=== PATIENT | female | born 1970 | race Caucasian/White ===

== ENCOUNTER → 2019-02-01 | Outpatient (CLI) | payer OTHER ==
--- NOTE | 2019-02-01 11:59 | KCIC ---
EXAM: Bilateral digital screening mammogram with tomosynthesis. HISTORY: 48-year-old female presents for screening mammography. TECHNIQUE: Full-field digital craniocaudal and mediolateral oblique 2D and 3D tomosynthesis images of both breasts are obtained for evaluation. Computer aided detection with OpenSpaceD software version 9.3 was applied. COMPARISON: None. This is a baseline mammogram. BREAST PARENCHYMAL DENSITY: Level B - Scattered fibroglandular densities. FINDINGS: There is no suspicious mass, microcalcification or region of architectural distortion. IMPRESSION: BI-RADS Category 2: Benign finding(s). RECOMMENDATION: Annual mammography is recommended. If your mammogram demonstrates that you have dense breast tissue, which could hide abnormalities, and if you have other risk factors for breast cancer that have been identified, you might benefit from supplemental screening tests that may be suggested by your ordering physician. Dense breast tissue, in and of itself, is a relatively common condition. This information is not provided to cause undue concern, but rather to raise your awareness and to promote discussion with your physician regarding the presence of other risk factors, in addition to dense breast tissue. A report of your mammography results will be sent to you and your physician. You should contact your physician if you have any questions or concerns regarding this report. Mammography is a sensitive method for finding small breast cancers, but it does not detect them all and is not a substitute for careful clinical examination. A negative mammogram does not negate a clinically suspicious finding and should not result in delay in biopsying a clinically suspicious abnormality. PQRS compliance statement - Patient information was entered into a reminder system with a target due date for the next mammogram. "Our facility is accredited by the [employer] Mammography Program." Electronically signed by: Bonnie Rodriguez MD (02/01/2019 11:56 AM) [id number]
== END | disposition home or self-care (01) ==
LOC: KCIC MAMMO 10:07
PROVIDERS: ATTEND Family Medicine
DX: Z12.31 Encounter for screening mammogram for malignant neoplasm of breast (principal)
CPT/HCPCS: 77063; 77067

== ENCOUNTER 2020-02-24 00:23 | Inpatient (IN) | payer OTHER ==
[~2020-02-24] VITALS: Ht 162.6 cm; Wt 70.9 kg
--- NOTE | 2020-02-24 00:47 | RAD ---
INDICATION: Reason: LEFT ARM NUMBNESS / Spl. Instructions: / History: COMPARISON: None. TECHNIQUE: Axial CT images obtained through the head without intravenous contrast. One or more of the following individualized dose reduction techniques were utilized for this examination: 1. Automated exposure control; 2. Adjustment of the mA and/or kV according to patient size; 3. Use of iterative reconstruction technique. FINDINGS: No intracranial hemorrhage. No midline shift. Basal cisterns patent. Ventricles and sulci are unremarkable. No acute osseous abnormality. Orbits and paranasal sinuses unremarkable. IMPRESSION: * No acute intracranial hemorrhage. * There are some scattered regions of low-density within the white matter. Nonspecific but some possible causes include small vessel ischemic disease or migraine. If further evaluation is desired an MRI could better assess whether any of these foci are acute. Report called to the emergency department at 12:41 AM on date of exam Electronically signed by: Severo Vance MD (02/24/2020 12:44 AM) [id number]
[2020-02-24 00:51] LABS: BASO # 0.1 x10^3/uL (0.0-0.2); BASO % 1 % (0-3); EOS # 0.5 x10^3/uL (0.0-0.7); EOS % 5 % (0-3); HEMATOCRIT 44.1 % (36.0-47.0); HEMOGLOBIN 15.4 g/dL (12.0-15.5); LYMPH # 3.7 x10^3/uL (1.0-4.8); LYMPH % 37 % (24-48); MEAN CORPUSCULAR HEMOGLOBIN 32 pg (25-35); MEAN CORPUSCULAR HGB CONC 35 g/dL (31-37); MEAN CORPUSCULAR VOLUME 90 fL (79-100); MONO # 0.6 x10^3/uL (0.0-1.1); MONO % 6 % (0-9); NEUT # 5.1 x10^3/uL (1.8-7.7); NEUT % 50 % (31-73); PLATELET COUNT 243 x10^3/uL (140-400); RED BLOOD COUNT 4.89 x10^6/uL (3.50-5.40); RED CELL DISTRIBUTION WIDTH 13.8 % (11.5-14.5); WHITE BLOOD COUNT 10.1 x10^3/uL (4.0-11.0)
--- NOTE | 2020-02-24 00:51 | PHYS DOC ---
General Adult EDM: Chief Complaint: NEURO SYMPTOMS/DEFICITS HPI: HPI: Patient is a 49 year old female presenting to the ED with a chief complaint of left upper extremity numbness. Patient states that she went to bed around 10:30 and woke up at 12:00 AM with numbness and pain in her left upper extremity. Patient does admit to being an active smoker. Patient also has a history of high blood pressure. Patient states that she had chest pain yesterday but none today. Patient denies fever, chills, nausea, vomiting, diarrhea, dysuria, shortness of breath. Review of Systems: Review of Systems: Constitutional: Denies fever or chills. [] Eyes: Denies change in visual acuity. [] HENT: Denies nasal congestion or sore throat. [] Respiratory: Denies cough or shortness of breath. [] Cardiovascular: Denies chest pain or edema. [] GI: Denies abdominal pain, nausea, vomiting, bloody stools or diarrhea. [] Neurologic: Complains of numbness in her left upper extremity and left cheek. [] Heart Score: Risk Factors: Risk Factors: DM, Current or recent (<one month) smoker, HTN, HLP, family history of CAD, obesity. Risk Scores: Score 0 - 3: 2.5% MACE over next 6 weeks - Discharge Home Score 4 - 6: 20.3% MACE over next 6 weeks - Admit for Clinical Observation Score 7 - 10: 72.7% MACE over next 6 weeks - Early Invasive Strategies Physical Exam: PE: Constitutional: Well developed, well nourished, no acute distress, non-toxic sage earance. [] HENT: Normocephalic, atraumatic Eyes: EOMI Neck: Normal range of motion, Supple Cardiovascular:Heart rate regular rhythm Lungs & Thorax: Bilateral breath sounds clear to auscultation [] Abdomen: Bowel sounds normal, soft, no tenderness Extremities: No tenderness, ROM intact Neurologic: Alert and oriented X 3, altered sensation in her left upper extremity and left side of the face EKG: EKG: [EKG interpretation: 12: 46 AM on 02/24/2020 HR: 61 Sinus rhythm Regular intervals Normal axis Nonspecific ST changes ] Radiology/Procedures: Radiology/Procedures: [] Impression: CT HEAD IMPRESSION: * No acute intracranial hemorrhage. * There are some scattered regions of low-density within the white matter. Nonspecific but some possible causes include small vessel ischemic disease or migraine. If further evaluation is desired an MRI could better assess whether any of these foci are acute. Report called to the emergency department at 12:41 AM on date of exam CTA HEAD and NECK IMPRESSION: * Vertebral, internal and common carotid arteries are patent within the neck. Multifocal plaque is seen. * Proximal middle, anterior and posterior cerebral arteries are patent. If there is high concern for stroke MRI could better assess for a more peripheral region of ischemia that would not be well seen on CT. * There are some lucent foci throughout the osseous structures. Could be from patchy osteopenia of the lucent lesions are within the differential as well and would correlate with history or risk factors for neoplasm. 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 Could be secondary to hypoplasia but may be helpful to obtain a follow-up MRI including venogram images to ensure there is not an alternative cause such as transverse sinus thrombosis. Report called to the ER at 3:20 AM Course & Med Decision Making: Course & Med Decision Making Pertinent Labs and Imaging studies reviewed. (See chart for details) Ordered labs, UA, CT head, EKG, troponin, chest x-ray EKG does not show any acute changes Labs are within normal limits. CT head does not show any acute intracranial process. There is some microvascular changes. I have discussed case with neurologist at 1:15 AM. Patient is still within the window. Patient denies score is 4. Patient has altered sensation in her left upper extremity and left side of her face. She also has mild left upper extremity drift and was not able to see the correct number of fingers with the left eye. Patient does not state that the symptoms are worsening. In discussion with the neurologist, the neurologist recommended that patient can be given TPA. I have discussed with patient at 1:20 AM. I have told her the risks and benefits of getting TPA. Patient does not have any exclusion criteria for TPA. After thinking it over patient declines TPA. She understands risks and dangers of not taking TPA. I have ordered a CTA of her head and neck. Patient will be admitted to hospital service for further evaluation and treatment. Patient's blood pressure was mildly elevated and so I have given her IV blood pressure medication in the ER. We will discuss with hospitalist service for admission. I discussed results and plan of care with patient. I discussed results of the CT of the head and neck with radiologist. The recommended the patient have an MRI with venogram. Dragon Disclaimer: Dragon Disclaimer: This electronic medical record was generated, in whole or in part, using a voice recognition dictation system. Departure Departure Impression: Primary Impression: CVA (cerebral vascular accident) Disposition: ADMITTED INPATIENT Condition: GUARDED Referrals: CARIE SANTIAGO MD (PCP) Justicifation of Admission Dx: Justifications for Admission: Justification of Admission Dx: Yes Stroke - Ischemic: Stroke-Ischemic JORDAN MARTINEZ DO Feb 24, 2020 00:51
[2020-02-24 00:59] LABS: CALCIUM 8.8 mg/dL (8.5-10.1); CREATININE 0.9 mg/dL (0.6-1.0); GFR 67.1; POTASSIUM 3.7 mmol/L (3.5-5.1)
[2020-02-24 01:04] LABS: ALBUMIN 3.5 g/dL (3.4-5.0); TOTAL BILIRUBIN 0.2 mg/dL (0.2-1.0); TOTAL PROTEIN 6.9 g/dL (6.4-8.2)
[2020-02-24] MEDS ORDERED: AMLO10TA4 PO (01:13)
[2020-02-24] MEDS ORDERED: BYSTOLIC20 MG PO (01:13)
[2020-02-24] MEDS ORDERED: IOHEXOL 300 MG/ML 100ML VIAL. IV ONE (02:00)
[2020-02-24 02:12] LABS: BILIRUBIN,URINE NEGATIVE (NEG); CLARITY,URINE CLEAR; COLOR,URINE YELLOW; NITRITE,URINE NEGATIVE (NEG); PROTEIN,URINE NEGATIVE (NEG-TRACE); UROBILINOGEN,URINE 0.2 mg/dL (0.2 mg/dL)
[2020-02-24] MEDS ORDERED: CONTRAST GIVEN. MC PRN (02:15)
[2020-02-24 02:16] LABS: BACTERIA,URINE 0 /HPF (0-FEW); RBC,URINE 0 /HPF (0-2); SQUAMOUS EPITHELIAL CELL,UR FEW /LPF; WBC,URINE OCC /HPF (0-4)
[2020-02-24] MEDS ORDERED: LABETALOL 20 MG/4 ML DISP.SYRIN. IVP ONE (02:30)
--- NOTE | 2020-02-24 03:33 | RAD ---
INDICATION: Reason: NEURO DEFICITS / Spl. Instructions: OMNI 300 INJ 75 MLS / History: COMPARISON: None. TECHNIQUE: Axial CT images obtained through the head and neck arterial vasculature with intravenous contrast. 3D images were processed per protocol. Estimates of carotid stenosis based on criteria that correlates with NASCET. One or more of the following individualized dose reduction techniques were utilized for this examination: 1. Automated exposure control; 2. Adjustment of the mA and/or kV according to patient size; 3. Use of iterative reconstruction technique. FINDINGS: Neck Angio: The vertebral arteries are patent. The common carotid arteries and internal carotid arteries are patent. Multifocal plaque is seen throughout the neck arterial vasculature with some hard and some soft plaque seen. There is suspected soft plaque at the origin of the right common carotid artery. Brain Angio: Proximal anterior cerebral arteries are patent. Proximal posterior cerebral arteries are patent. Proximal middle cerebral arteries are patent. Basilar artery is patent. The right transverse sinus is largely absent. Filling defect is seen at the junction of right transverse and sigmoid sinus which could be from arachnoid granulation. Other Findings: Nasal septal deviation to the left. Degenerative changes of the spine. Cystic changes at the lung apices. There are some lucent foci in some of the cervical vertebral bodies. IMPRESSION: * Vertebral, internal and common carotid arteries are patent within the neck. Multifocal plaque is seen. * Proximal middle, anterior and posterior cerebral arteries are patent. If there is high concern for stroke MRI could better assess for a more peripheral region of ischemia that would not be well seen on CT. * There are some lucent foci throughout the osseous structures. Could be from patchy osteopenia of the lucent lesions are within the differential as well and would correlate with history or risk factors for neoplasm. 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 Could be secondary to hypoplasia but may be helpful to obtain a follow-up MRI including venogram images to ensure there is not an alternative cause such as transverse sinus thrombosis. Report called to the ER at 3:20 AM FOR INTERNAL CODING PURPOSES RESULT CODE: (C) * Electronically signed by: Severo Vance MD (02/24/2020 3:29 AM) [id number]
--- NOTE | 2020-02-24 04:22 | RAD ---
INDICATION: Reason: pain / Spl. Instructions: / History: COMPARISON: None. FINDINGS: Single view of chest obtained. Hyperexpanded lungs without focal airspace consolidation. Calcific atherosclerosis without enlargement of cardiac silhouette. IMPRESSION: * Hyperexpanded lungs without focal airspace consolidation Electronically signed by: Severo Vance MD (02/24/2020 4:19 AM) [id number]
[2020-02-24 06:00] VITALS: BP 167/99
--- NOTE | 2020-02-24 06:37 | NUR ---
Pt brought to CVC room 211 at approx 0555. Pt transferred to CVC bed with SBA. Pt a&ox4, able to follow commands. NIH stroke scale performed upon admission to the unit with a score of zero. Pt VSS, afebrile. Pts only complaint is 2/10 pain to left arm, which she states is due to her IV irritating her. Pt denies any further numbness/tingling to her left side. Pt currently resting in bed with call light within reach. Pt is pressing call light to get up and use the restroom, otherwise pt is on bedrest. Will pass on and continue to monitor.
[2020-02-24 07:00] VITALS: BP 142/93
--- NOTE | 2020-02-24 08:11 | PDOC1 ---
History and Physical Date of Admission Date of Admission DATE: 02/24/20 TIME: 08:07 Identification/Chief Complaint Chief Complaint Left arm numbness Source Source: Patient History of Present Illness History of Present Illness Ms Aguirre is a 49 yo F w/ PMHx HTN, smoker presenting to the ED with a chief complaint of left upper extremity numbness. Patient states that she went to bed around 10:30pm and woke up at 12:00 AM with numbness and pain in her left upper extremity. Patient states that she had chest pain yesterday but none today. Patient denies fever, chills, nausea, vomiting, diarrhea, dysuria, shortness of breath. She notes a severe headache and nausea. Symptoms started to improve. She was not given ASA due to allergy. CT head nega tive for infarct, but CT angiography of brain and neck showed Past Medical History Cardiovascular: HTN Past Surgical History Past Surgical History: , Tubal Ligation Family History Family History: Hypertension Social History Smoke: <1 pack per day ALCOHOL: social Drugs: None Current Problem List Problem List Problems Medical Problems: (1) CVA (cerebral vascular accident) Status: Acute Current Medications Current Medications Current Medications Labetalol HCl (Normodyne Iv Push) 5 mg 1X ONCE IVP Last administered on 02/24/20at 02:08; Start 02/24/20 at 02:30; Stop 02/24/20 at 02:31; Status DC Iohexol (Omnipaque 300 Mg/ml) 75 ml 1X ONCE IV Last administered on 02/24/20at 02:02; Start 02/24/20 at 02:00; Stop 02/24/20 at 02:03; Status DC Info (CONTRAST GIVEN -- Rx MONITORING) 1 each PRN DAILY PRN MC SEE COMMENTS; Start 02/24/20 at 02:15; Stop 02/26/20 at 02:14 Active Scripts Active Reported Bystolic (Nebivolol Hcl) 20 Mg Tablet 20 Mg PO DAILY PRN Norvasc (Amlodipine Besylate) 10 Mg Tablet 10 Mg PO DAILY PRN Allergies Allergies: Coded Allergies: aspirin (Verified Allergy, Severe, angioedema, 02/24/20) 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 , 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, 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, 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 General: YES: Fatigue, Malaise; No: Chills, Night Sweats, Appetite, Other PSYCHOLOGICAL ROS: YES: Anxiety; No: Behavioral Disorder, Concentration difficultie, Decreased libido, Depression, Disorientation, Hallucinations, Hostility, Irritablity, Memory difficulties, Mood Swings, Obsessive thoughts, Physical abuse, Sexual abuse, Sleep disturbances, Suicidal ideation, Other Eyes: No Blurry vision, No Decreased vision, No Double vision, No Dry eyes, No Excessive tearing, No Eye Pain, No Itchy Eyes, No Loss of vision, No Photophobia, No Scotomata, No Uses contacts, No Uses glasses, No Other HEENT: No: Heacaches, Visual Changes, Hearing change, Nasal congestion, Nasal discharge, Oral lesions, Sinus pain, Sore Throat, Epistaxis, Sneezing, Snoring, Tinnitus, Vertigo, Vocal changes, Other ALLERGY AND IMMUNOLOGY: No: Hives, Insect Bite Sensitivity, Itchy/Watery Eyes, Nasal Congestion, Post Nasal Drip, Seasonal Allergies, Other Hematological and Lymphatic: No: Bleeding Problems, Blood Clots, Blood Transfusions, Brusing, Night Sweats, Pallor, Swollen Lymph Nodes, Other ENDOCRINE: No: Breast Changes, Galactorrhea, Hair Pattern Changes, Hot Flashes, Malaise/lethargy, Mood Swings, Palpitations, Polydipsia/polyuria, Skin Changes, Temperature Intolerance, Unexpected Weight Changes, Other Breast: No New/Changing Breast Lumps, No Nipple changes, No Nipple discharge, No Other Respiratory: No: Cough, Hemoptysis, Orthopnea, Pleuritic Pain, Shortness of breath, SOB with excertion, Sputum Changes, Stridor, Tachypnea, Wheezing, Other Cardiovascular: No Chest Pain, No Palpitations, No Orthopnea, No Paroxysmal Noc. Dyspnea, No Edema, No Lt Headedness, No Other Gastrointestinal: No Nausea, No Vomiting, No Abdominal Pain, No Diarrhea, No Constipation, No Melena, No Hematochezia, No Other Genitourinary: No Dysuria, No Frequency, No Incontinence, No Hematuria, No Retention, No Discharge, No Urgency, No Pain, No Flank Pain, No Other, No , No , No , No , No , No , No Musculoskeletal: No Gait Disturbance, No Joint Pain, No Joint Stiffness, No Joint Swelling, No Muscle Pain, No Muscular Weakness, No Pain In:, No Swelling In:, No Other Neurological: Yes Headaches, Yes Numbness/Tingling, Yes Weakness; No Behavorial Changes, No Bowel/Bladder ControlChng, No Confusion, No Dizziness, No Gait Disturbance, No Impaired Coord/balance, No Memory Loss, No Seizures, No Speech Problems, No Tremors, No Visual Changes, No Other Skin: No Dry Skin, No Eczema, No Hair Changes, No Lumps, No Mole Changes, No Mottling, No Nail Changes, No Pruritus, No Rash, No Skin Lesion Changes, No Other, No Acne Physical Exam General: Alert, Oriented X3, Cooperative, No acute distress HEENT: Atraumatic, PERRLA, EOMI, Mucous membr. moist/pink Lungs: Clear to auscultation, Normal air movement Heart: S1S2, RRR, no thrills, no rubs, no gallops, no murmurs Abdomen: Normal bowel sounds, Soft, No tenderness, No hepatosplenomegaly, No masses Rectal Exam: not examined Extremities: No clubbing, No cyanosis, No edema, Normal pulses, No tenderness/swelling Skin: No rashes, No breakdown, No significant lesion Neuro: Normal gait, Normal speech, Strength at 5/5 X4 ext, Normal tone, Sensation intact, Cranial nerves 3-12 NL, Reflexes 2+ Psych/Mental Status: Mental status NL, Mood NL Vitals Vitals Vital Signs Date Time Temp Pulse Resp B/P (MAP) Pulse Ox O2 Delivery O2 Flow Rate FiO2 02/24/20 06:00 97.9 69 18 167/99 (121) 92 Room Air 97.9 Labs Labs Laboratory Tests Test 02/24/20 00:38 02/24/20 00:40 02/24/20 02:03 Glucose (Fingerstick) 88 mg/dL (70-99) White Blood Count 10.1 x10^3/uL (4.0-11.0) Red Blood Count 4.89 x10^6/uL (3.50-5.40) Hemoglobin 15.4 g/dL (12.0-15.5) Hematocrit 44.1 % (36.0-47.0) Mean Corpuscular Volume 90 fL (79-100) Mean Corpuscular Hemoglobin 32 pg (25-35) Mean Corpuscular Hemoglobin Concent 35 g/dL (31-37) Red Cell Distribution Width 13.8 % (11.5-14.5) Platelet Count 243 x10^3/uL (140-400) Neutrophils (%) (Auto) 50 % (31-73) Lymphocytes (%) (Auto) 37 % (24-48) Monocytes (%) (Auto) 6 % (0-9) Eosinophils (%) (Auto) 5 % (0-3) Basophils (%) (Auto) 1 % (0-3) Neutrophils # (Auto) 5.1 x10^3/uL (1.8-7.7) Lymphocytes # (Auto) 3.7 x10^3/uL (1.0-4.8) Monocytes # (Auto) 0.6 x10^3/uL (0.0-1.1) Eosinophils # (Auto) 0.5 x10^3/uL (0.0-0.7) Basophils # (Auto) 0.1 x10^3/uL (0.0-0.2) Sodium Level 141 mmol/L (136-145) Potassium Level 3.7 mmol/L (3.5-5.1) Chloride Level 107 mmol/L (98-107) Carbon Dioxide Level 28 mmol/L (21-32) Anion Gap 6 (6-14) Blood Urea Nitrogen 20 mg/dL (7-20) Creatinine 0.9 mg/dL (0.6-1.0) Estimated GFR (Cockcroft-Gault) 67.1 BUN/Creatinine Ratio 22 (6-20) Glucose Level 98 mg/dL (70-99) Calcium Level 8.8 mg/dL (8.5-10.1) Total Bilirubin 0.2 mg/dL (0.2-1.0) Aspartate Amino Transf (AST/SGOT) 18 U/L (15-37) Alanine Aminotransferase (ALT/SGPT) 19 U/L (14-59) Alkaline Phosphatase 92 U/L (46-116) Troponin I Quantitative < 0.017 ng/mL (0.000-0.055) Total Protein 6.9 g/dL (6.4-8.2) Albumin 3.5 g/dL (3.4-5.0) Albumin/Globulin Ratio 1.0 (1.0-1.7) Urine Collection Type Unknown Urine Color Yellow Urine Clarity Clear Urine pH 7.0 (<5.0-8.0) Urine Specific [place] 1.010 (1.000-1.030) Urine Protein Negative mg/dL (NEG-TRACE) Urine Glucose (UA) Negative mg/dL (NEG) Urine Ketones (Stick) Negative mg/dL (NEG) Urine Blood Negative (NEG) Urine Nitrite Negative (NEG) Urine Bilirubin Negative (NEG) Urine Urobilinogen Dipstick 0.2 mg/dL (0.2 mg/dL) Urine Leukocyte Esterase Negative (NEG) Urine RBC 0 /HPF (0-2) Urine WBC Occ /HPF (0-4) Urine Squamous Epithelial Cells Few /LPF Urine Bacteria 0 /HPF (0-FEW) Laboratory Tests Test 02/24/20 00:38 02/24/20 00:40 02/24/20 02:03 Glucose (Fingerstick) 88 mg/dL (70-99) White Blood Count 10.1 x10^3/uL (4.0-11.0) Red Blood Count 4.89 x10^6/uL (3.50-5.40) Hemoglobin 15.4 g/dL (12.0-15.5) Hematocrit 44.1 % (36.0-47.0) Mean Corpuscular Volume 90 fL (79-100) Mean Corpuscular Hemoglobin 32 pg (25-35) Mean Corpuscular Hemoglobin Concent 35 g/dL (31-37) Red Cell Distribution Width 13.8 % (11.5-14.5) Platelet Count 243 x10^3/uL (140-400) Neutrophils (%) (Auto) 50 % (31-73) Lymphocytes (%) (Auto) 37 % (24-48) Monocytes (%) (Auto) 6 % (0-9) Eosinophils (%) (Auto) 5 % (0-3) Basophils (%) (Auto) 1 % (0-3) Neutrophils # (Auto) 5.1 x10^3/uL (1.8-7.7) Lymphocytes # (Auto) 3.7 x10^3/uL (1.0-4.8) Monocytes # (Auto) 0.6 x10^3/uL (0.0-1.1) Eosinophils # (Auto) 0.5 x10^3/uL (0.0-0.7) Basophils # (Auto) 0.1 x10^3/uL (0.0-0.2) Sodium Level 141 mmol/L (136-145) Potassium Level 3.7 mmol/L (3.5-5.1) Chloride Level 107 mmol/L (98-107) Carbon Dioxide Level 28 mmol/L (21-32) Anion Gap 6 (6-14) Blood Urea Nitrogen 20 mg/dL (7-20) Creatinine 0.9 mg/dL (0.6-1.0) Estimated GFR (Cockcroft-Gault) 67.1 BUN/Creatinine Ratio 22 (6-20) Glucose Level 98 mg/dL (70-99) Calcium Level 8.8 mg/dL (8.5-10.1) Total Bilirubin 0.2 mg/dL (0.2-1.0) Aspartate Amino Transf (AST/SGOT) 18 U/L (15-37) Alanine Aminotransferase (ALT/SGPT) 19 U/L (14-59) Alkaline Phosphatase 92 U/L (46-116) Troponin I Quantitative < 0.017 ng/mL (0.000-0.055) Total Protein 6.9 g/dL (6.4-8.2) Albumin 3.5 g/dL (3.4-5.0) Albumin/Globulin Ratio 1.0 (1.0-1.7) Urine Collection Type Unknown Urine Color Yellow Urine Clarity Clear Urine pH 7.0 (<5.0-8.0) Urine Specific [place] 1.010 (1.000-1.030) Urine Protein Negative mg/dL (NEG-TRACE) Urine Glucose (UA) Negative mg/dL (NEG) Urine Ketones (Stick) Negative mg/dL (NEG) Urine Blood Negative (NEG) Urine Nitrite Negative (NEG) Urine Bilirubin Negative (NEG) Urine Urobilinogen Dipstick 0.2 mg/dL (0.2 mg/dL) Urine Leukocyte Esterase Negative (NEG) Urine RBC 0 /HPF (0-2) Urine WBC Occ /HPF (0-4) Urine Squamous Epithelial Cells Few /LPF Urine Bacteria 0 /HPF (0-FEW) Images Images CT head: No intracranial hemorrhage. No midline shift. Basal cisterns patent. Ventricles and sulci are unremarkable. No acute osseous abnormality. Orbits and paranasal sinuses unremarkable. IMPRESSION: * No acute intracranial hemorrhage. * There are some scattered regions of low-density within the white matter. Nonspecific but some possible causes include small vessel ischemic disease or migraine. If further evaluation is desired an MRI could better assess whether any of these foci are acute. CTA head/neck: Neck Angio: The vertebral arteries are patent. The common carotid arteries and internal carotid arteries are patent. Multifocal plaque is seen throughout the neck arterial vasculature with some hard and some soft plaque seen. There is suspected soft plaque at the origin of the right common carotid artery. Brain Angio: Proximal anterior cerebral arteries are patent. Proximal posterior cerebral arteries are patent. Proximal middle cerebral arteries are patent. Basilar artery is patent. The right transverse sinus is largely absent. Filling defect is seen at the junction of right transverse and sigmoid sinus which could be from arachnoid granulation. Other Findings: Nasal septal deviation to the left. Degenerative changes of the spine. Cystic changes at the lung apices. There are some lucent foci in some of the cervical vertebral bodies. IMPRESSION: * Vertebral, internal and common carotid arteries are patent within the neck. Multifocal plaque is seen. * Proximal middle, anterior and posterior cerebral arteries are patent. If there is high concern for stroke MRI could better assess for a more peripheral region of ischemia that would not be well seen on CT. * There are some lucent foci throughout the osseous structures. Could be from patchy osteopenia of the lucent lesions are within the differential as well and would correlate with history or risk factors for neoplasm. 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 Could be secondary to hypoplasia but may be helpful to obtain a follow-up MRI including venogram images to ensure there is not an alternative cause such as transverse sinus thrombosis. Report called to the ER at 3:20 AM CXR: Hyperexpanded lungs without focal airspace consolidation. Calcific atherosclerosis without enlargement of cardiac silhouette. IMPRESSION: * Hyperexpanded lungs without focal airspace consolidation VTE Prophylaxis Ordered VTE Prophylaxis Devices: No VTE Pharmacological Prophylaxi: Yes Assessment/Plan Assessment/Plan A/P: Left upper extremity weakness - possibly left radial neuropathy or radiculopathy, less likely CVA given resolution. MRI ordered. Neurology consulted. ASA allergy. No need for plavix Possible thrombosis in right transverse sinus versus just congenital hypoplasia - will get MRV HTN - cont home meds Headache - possibly 2/2 sinus thrombus vs stress, will give toradol prn Nausea - zofran and compazine ordered FEN - Regular diet PPX - SCDs FULL CODE Dispo - inpatient awaiting further testing given weakness, but given resolution of symptoms. Discharge later today if tests negative. Justicifation of Admission Dx: Justifications for Admission: Justification of Admission Dx: Comment: (left upper extremity weakness and possible right venous sinus thrombus) ALINE EDMONDSON MD Feb 24, 2020 08:11
--- NOTE | 2020-02-24 09:04 | EKG ---
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
--- NOTE | 2020-02-24 09:10 | PDOC2 ---
NEUROLOGY CONSULT Date of Admission Date of Admission DATE: 02/24/20 TIME: 09:03 Reason for Consult Reason for Consult: Possible stroke Referring Physician Referring Physician: Dr. Kunz Source Source: Chart review, Patient History of Present Illness History of Present Illness The patient is a 49-year-old right-handed female who presented the emergency department with left upper extremity numbness and weakness. She went to bed at 1030, that's her last known normal, woke up at 12 AM with the symptoms. There was pain in the left dorsal forearm. The emergency room physician discussed the case with on-call neurologist who recommended alteplase, but the patient declined after hearing the risks, benefits, alternatives, and side effects. She is much better this morning. She was very tired last night and may have janell on the left arm. There were no symptoms the other extremities. There was no headache or cranial nerve symptoms. There is no history of migraine. The patient was not intoxicated. 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 Current Medications Current Medications Current Medications Labetalol HCl (Normodyne Iv Push) 5 mg 1X ONCE IVP Last administered on 02/24/20at 02:08; Start 02/24/20 at 02:30; Stop 02/24/20 at 02:31; Status DC Iohexol (Omnipaque 300 Mg/ml) 75 ml 1X ONCE IV Last administered on 02/24/20at 02:02; Start 02/24/20 at 02:00; Stop 02/24/20 at 02:03; Status DC Info (CONTRAST GIVEN -- Rx MONITORING) 1 each PRN DAILY PRN MC SEE COMMENTS; Start 02/24/20 at 02:15; Stop 02/26/20 at 02:14 Active Scripts Active Reported Bystolic (Nebivolol Hcl) 20 Mg Tablet 20 Mg PO DAILY PRN Norvasc (Amlodipine Besylate) 10 Mg Tablet 10 Mg PO DAILY PRN Allergies Allergies: Coded Allergies: aspirin (Verified Allergy, Severe, angioedema, 02/24/20) 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 Negative for fever, chills, weight loss, shortness of breath, chest pain, indigestion, hematochezia, melena, and dysuria. Full 14-point review of systems is negative. Physical Exam Physical Examination General: Well-developed, well-nourished white female in no acute distress HEENT: Normocephalic andatraumatic. Temporal arteriespulsatile and nontender. Neck: Supple without bruit, no meningismus Musculoskeletal: Stability:see neurologic. Gait exam:see neurologic. Tone:see neurologic.Strength:see neurologic. Joints: some tenderness to palpation in the dorsum of the left hand and wrist Neurological: Mental Status:intact, orientation, memory, attention span/concentration, language, fund of knowledge normal. Cranial Nerves:Pupils equal and reactive to light, extraocular movements areintact, visual kathleen are full to confrontation. Facial sensation is normal. There is no facial asymmetry. Vestibulo-ocular reflex is intact. Palate elevates and tongue protrudes in midline. All other cranial related problems are negative except as mentioned before.Reflexes:2+ and symmetric with flexor plantar responses. Motor:5/5 strength with normal tone and bulk. Coordination:Finger-nose finger and [id number] testing are normal. Rapid alternating movements and fine finger movements are intact. Gait:Normal, including tandem. Sensory:Normal pinprick, vibration, light touch, proprioception. Vitals VITALS Vital Signs Date Time Temp Pulse Resp B/P (MAP) Pulse Ox O2 Delivery O2 Flow Rate FiO2 02/24/20 06:00 97.9 69 18 167/99 (121) 92 Room Air 97.9 Labs Labs Laboratory Tests Test 02/24/20 00:38 02/24/20 00:40 02/24/20 02:03 Glucose (Fingerstick) 88 mg/dL (70-99) White Blood Count 10.1 x10^3/uL (4.0-11.0) Red Blood Count 4.89 x10^6/uL (3.50-5.40) Hemoglobin 15.4 g/dL (12.0-15.5) Hematocrit 44.1 % (36.0-47.0) Mean Corpuscular Volume 90 fL (79-100) Mean Corpuscular Hemoglobin 32 pg (25-35) Mean Corpuscular Hemoglobin Concent 35 g/dL (31-37) Red Cell Distribution Width 13.8 % (11.5-14.5) Platelet Count 243 x10^3/uL (140-400) Neutrophils (%) (Auto) 50 % (31-73) Lymphocytes (%) (Auto) 37 % (24-48) Monocytes (%) (Auto) 6 % (0-9) Eosinophils (%) (Auto) 5 % (0-3) Basophils (%) (Auto) 1 % (0-3) Neutrophils # (Auto) 5.1 x10^3/uL (1.8-7.7) Lymphocytes # (Auto) 3.7 x10^3/uL (1.0-4.8) Monocytes # (Auto) 0.6 x10^3/uL (0.0-1.1) Eosinophils # (Auto) 0.5 x10^3/uL (0.0-0.7) Basophils # (Auto) 0.1 x10^3/uL (0.0-0.2) Sodium Level 141 mmol/L (136-145) Potassium Level 3.7 mmol/L (3.5-5.1) Chloride Level 107 mmol/L (98-107) Carbon Dioxide Level 28 mmol/L (21-32) Anion Gap 6 (6-14) Blood Urea Nitrogen 20 mg/dL (7-20) Creatinine 0.9 mg/dL (0.6-1.0) Estimated GFR (Cockcroft-Gault) 67.1 BUN/Creatinine Ratio 22 (6-20) Glucose Level 98 mg/dL (70-99) Calcium Level 8.8 mg/dL (8.5-10.1) Total Bilirubin 0.2 mg/dL (0.2-1.0) Aspartate Amino Transf (AST/SGOT) 18 U/L (15-37) Alanine Aminotransferase (ALT/SGPT) 19 U/L (14-59) Alkaline Phosphatase 92 U/L (46-116) Troponin I Quantitative < 0.017 ng/mL (0.000-0.055) Total Protein 6.9 g/dL (6.4-8.2) Albumin 3.5 g/dL (3.4-5.0) Albumin/Globulin Ratio 1.0 (1.0-1.7) Urine Collection Type Unknown Urine Color Yellow Urine Clarity Clear Urine pH 7.0 (<5.0-8.0) Urine Specific [place] 1.010 (1.000-1.030) Urine Protein Negative mg/dL (NEG-TRACE) Urine Glucose (UA) Negative mg/dL (NEG) Urine Ketones (Stick) Negative mg/dL (NEG) Urine Blood Negative (NEG) Urine Nitrite Negative (NEG) Urine Bilirubin Negative (NEG) Urine Urobilinogen Dipstick 0.2 mg/dL (0.2 mg/dL) Urine Leukocyte Esterase Negative (NEG) Urine RBC 0 /HPF (0-2) Urine WBC Occ /HPF (0-4) Urine Squamous Epithelial Cells Few /LPF Urine Bacteria 0 /HPF (0-FEW) Laboratory Tests Test 02/24/20 00:38 02/24/20 00:40 02/24/20 02:03 Glucose (Fingerstick) 88 mg/dL (70-99) White Blood Count 10.1 x10^3/uL (4.0-11.0) Red Blood Count 4.89 x10^6/uL (3.50-5.40) Hemoglobin 15.4 g/dL (12.0-15.5) Hematocrit 44.1 % (36.0-47.0) Mean Corpuscular Volume 90 fL (79-100) Mean Corpuscular Hemoglobin 32 pg (25-35) Mean Corpuscular Hemoglobin Concent 35 g/dL (31-37) Red Cell Distribution Width 13.8 % (11.5-14.5) Platelet Count 243 x10^3/uL (140-400) Neutrophils (%) (Auto) 50 % (31-73) Lymphocytes (%) (Auto) 37 % (24-48) Monocytes (%) (Auto) 6 % (0-9) Eosinophils (%) (Auto) 5 % (0-3) Basophils (%) (Auto) 1 % (0-3) Neutrophils # (Auto) 5.1 x10^3/uL (1.8-7.7) Lymphocytes # (Auto) 3.7 x10^3/uL (1.0-4.8) Monocytes # (Auto) 0.6 x10^3/uL (0.0-1.1) Eosinophils # (Auto) 0.5 x10^3/uL (0.0-0.7) Basophils # (Auto) 0.1 x10^3/uL (0.0-0.2) Sodium Level 141 mmol/L (136-145) Potassium Level 3.7 mmol/L (3.5-5.1) Chloride Level 107 mmol/L (98-107) Carbon Dioxide Level 28 mmol/L (21-32) Anion Gap 6 (6-14) Blood Urea Nitrogen 20 mg/dL (7-20) Creatinine 0.9 mg/dL (0.6-1.0) Estimated GFR (Cockcroft-Gault) 67.1 BUN/Creatinine Ratio 22 (6-20) Glucose Level 98 mg/dL (70-99) Calcium Level 8.8 mg/dL (8.5-10.1) Total Bilirubin 0.2 mg/dL (0.2-1.0) Aspartate Amino Transf (AST/SGOT) 18 U/L (15-37) Alanine Aminotransferase (ALT/SGPT) 19 U/L (14-59) Alkaline Phosphatase 92 U/L (46-116) Troponin I Quantitative < 0.017 ng/mL (0.000-0.055) Total Protein 6.9 g/dL (6.4-8.2) Albumin 3.5 g/dL (3.4-5.0) Albumin/Globulin Ratio 1.0 (1.0-1.7) Urine Collection Type Unknown Urine Color Yellow Urine Clarity Clear Urine pH 7.0 (<5.0-8.0) Urine Specific [place] 1.010 (1.000-1.030) Urine Protein Negative mg/dL (NEG-TRACE) Urine Glucose (UA) Negative mg/dL (NEG) Urine Ketones (Stick) Negative mg/dL (NEG) Urine Blood Negative (NEG) Urine Nitrite Negative (NEG) Urine Bilirubin Negative (NEG) Urine Urobilinogen Dipstick 0.2 mg/dL (0.2 mg/dL) Urine Leukocyte Esterase Negative (NEG) Urine RBC 0 /HPF (0-2) Urine WBC Occ /HPF (0-4) Urine Squamous Epithelial Cells Few /LPF Urine Bacteria 0 /HPF (0-FEW) Images Images CT head: No intracranial hemorrhage. No midline shift. Basal cisterns patent. Ventricles and sulci are unremarkable. No acute osseous abnormality. Orbits and paranasal sinuses unremarkable. IMPRESSION: * No acute intracranial hemorrhage. * There are some scattered regions of low-density within the white matter. Nonspecific but some possible causes include small vessel ischemic disease or migraine. If further evaluation is desired an MRI could better assess whether any of these foci are acute. Report called to the emergency department at 12:41 AM on date of exam CT ANGIOGRAPHY HEAD AND NECK Neck Angio: The vertebral arteries are patent. The common carotid arteries and internal carotid arteries are patent. Multifocal plaque is seen throughout the neck arterial vasculature with some hard and some soft plaque seen. There is suspected soft plaque at the origin of the right common carotid artery. Brain Angio: Proximal anterior cerebral arteries are patent. Proximal posterior cerebral arteries are patent. Proximal middle cerebral arteries are patent. Basilar artery is patent. The right transverse sinus is largely absent. Filling defect is seen at the junction of right transverse and sigmoid sinus which could be from arachnoid granulation. Other Findings: Nasal septal deviation to the left. Degenerative changes of the spine. Cystic changes at the lung apices. There are some lucent foci in some of the cervical vertebral bodies. IMPRESSION: * Vertebral, internal and common carotid arteries are patent within the neck. Multifocal plaque is seen. * Proximal middle, anterior and posterior cerebral arteries are patent. If there is high concern for stroke MRI could better assess for a more peripheral region of ischemia that would not be well seen on CT. * There are some lucent foci throughout the osseous structures. Could be from patchy osteopenia of the lucent lesions are within the differential as well and would correlate with history or risk factors for neoplasm. 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 Could be secondary to hypoplasia but may be helpful to obtain a follow-up MRI including venogram images to ensure there is not an alternative cause such as transverse sinus thrombosis. Report called to the ER at 3:20 AM Assessment/Plan Assessment/Plan Impression: No evidence of a stroke or transient ischemic attack, signs and symptoms point more to musculoskeletal issues in the left arm, I would also consider a left radial neuropathy, also consider cervical radiculopathy, shoulder pathology, arthritis. There were no symptoms and the other extremities. Symptoms have resolved. Possible thrombosis in right transverse sinus versus just congenital hypoplasia. Possible skull lucencies Recommendations: MRI of the brain MR venogram Hold off on other genny treatments depending on these results I did discuss possible aspirin therapy, but the patient has pulmonary edema with it, risks certainly outweigh the benefits. I do not think she needs a stronger antiplatelet agents such as clopidogrel Discharge later today if tests negative. Thank you for letting me help with the patient's care. OSBALDO BENOIT MD Feb 24, 2020 09:10
[2020-02-24 11:00] VITALS: BP 150/91
--- NOTE | 2020-02-24 11:44 | NUR ---
SS following for discharge planning. SS reviewed pt chart and discussed with pt RN. Pt is from home with spouse and is currently on room air. SS will continue to follow for discharge planning.
[2020-02-24] MEDS ORDERED: PROCHLORPERAZINE 10 MG/2 ML VIAL. IV PRN (14:00)
[2020-02-24] MEDS ORDERED: KETOROLAC 30 MG/ML VIAL. IVP PRN (14:00)
[2020-02-24 14:28] VITALS: BP 144/93
[2020-02-24] MEDS ORDERED: amLODIPine BESYLATE 10 MG TABLET PO PRN (15:00)
[2020-02-24 19:00] VITALS: BP 155/92
[2020-02-24] MEDS ORDERED: METOPROLOL TART IMMED RELEASE 50 MG TABLET. PO PRN (21:00)
[2020-02-24 23:26] VITALS: BP 169/98
[2020-02-25 03:30] VITALS: BP 145/78
[2020-02-25 07:00] VITALS: BP 160/85
--- NOTE | 2020-02-25 09:24 | PDOC ---
PROGRESS NOTES Assessment Problems Medical Problems: (1) CVA (cerebral vascular accident) Status: Acute No evidence of a stroke or transient ischemic attack, signs and symptoms point more to musculoskeletal issues in the left arm, I would also consider a left radial neuropathy, also consider cervical radiculopathy, shoulder pathology, arthritis. There were no symptoms in the other extremities. Symptoms have resolved. Possible thrombosis in right transverse sinus versus just congenital hypoplasia. Possible skull lucencies Plan My office will arrange MRI of the brain, MR venogram as outpatient as brain MRI scanner is still out of order. Okay for discharge No aspirin therapy, patient has pulmonary edema with it, risks certainly outweigh the benefits. I do not think she needs a stronger antiplatelet agents such as clopidogrel Subjective No complaints, all symptoms have resolved Objective Vital Signs Date Time Temp Pulse Resp B/P (MAP) Pulse Ox O2 Delivery O2 Flow Rate FiO2 02/25/20 07:00 98.7 61 19 160/85 (110) 93 Room Air 98.7 Intake and Output 02/25/20 07:00 Intake Total 100 ml Output Total 200 ml Balance -100 ml Intake Oral 100 ml Output Urine Total 200 ml PHYSICAL EXAM Alert. Oriented to time, place and person. PERRL. EOMI. CN: no focal findings. Muscle tone: normal. Muscle strength: 5/5 DTR: 2+ Plantar reflex: flexor Gait: normal. Sensory exam: no abnormal findings. No cerebellar signs elicited. Review of Relevant I have reviewed the following items charles (where applicable) has been applied. Labs Laboratory Tests Test 02/24/20 00:38 02/24/20 00:40 02/24/20 02:03 Glucose (Fingerstick) 88 mg/dL (70-99) White Blood Count 10.1 x10^3/uL (4.0-11.0) Red Blood Count 4.89 x10^6/uL (3.50-5.40) Hemoglobin 15.4 g/dL (12.0-15.5) Hematocrit 44.1 % (36.0-47.0) Mean Corpuscular Volume 90 fL (79-100) Mean Corpuscular Hemoglobin 32 pg (25-35) Mean Corpuscular Hemoglobin Concent 35 g/dL (31-37) Red Cell Distribution Width 13.8 % (11.5-14.5) Platelet Count 243 x10^3/uL (140-400) Neutrophils (%) (Auto) 50 % (31-73) Lymphocytes (%) (Auto) 37 % (24-48) Monocytes (%) (Auto) 6 % (0-9) Eosinophils (%) (Auto) 5 % (0-3) Basophils (%) (Auto) 1 % (0-3) Neutrophils # (Auto) 5.1 x10^3/uL (1.8-7.7) Lymphocytes # (Auto) 3.7 x10^3/uL (1.0-4.8) Monocytes # (Auto) 0.6 x10^3/uL (0.0-1.1) Eosinophils # (Auto) 0.5 x10^3/uL (0.0-0.7) Basophils # (Auto) 0.1 x10^3/uL (0.0-0.2) Sodium Level 141 mmol/L (136-145) Potassium Level 3.7 mmol/L (3.5-5.1) Chloride Level 107 mmol/L (98-107) Carbon Dioxide Level 28 mmol/L (21-32) Anion Gap 6 (6-14) Blood Urea Nitrogen 20 mg/dL (7-20) Creatinine 0.9 mg/dL (0.6-1.0) Estimated GFR (Cockcroft-Gault) 67.1 BUN/Creatinine Ratio 22 (6-20) Glucose Level 98 mg/dL (70-99) Calcium Level 8.8 mg/dL (8.5-10.1) Total Bilirubin 0.2 mg/dL (0.2-1.0) Aspartate Amino Transf (AST/SGOT) 18 U/L (15-37) Alanine Aminotransferase (ALT/SGPT) 19 U/L (14-59) Alkaline Phosphatase 92 U/L (46-116) Troponin I Quantitative < 0.017 ng/mL (0.000-0.055) Total Protein 6.9 g/dL (6.4-8.2) Albumin 3.5 g/dL (3.4-5.0) Albumin/Globulin Ratio 1.0 (1.0-1.7) Urine Collection Type Unknown Urine Color Yellow Urine Clarity Clear Urine pH 7.0 (<5.0-8.0) Urine Specific [place] 1.010 (1.000-1.030) Urine Protein Negative mg/dL (NEG-TRACE) Urine Glucose (UA) Negative mg/dL (NEG) Urine Ketones (Stick) Negative mg/dL (NEG) Urine Blood Negative (NEG) Urine Nitrite Negative (NEG) Urine Bilirubin Negative (NEG) Urine Urobilinogen Dipstick 0.2 mg/dL (0.2 mg/dL) Urine Leukocyte Esterase Negative (NEG) Urine RBC 0 /HPF (0-2) Urine WBC Occ /HPF (0-4) Urine Squamous Epithelial Cells Few /LPF Urine Bacteria 0 /HPF (0-FEW) Medications Current Medications Labetalol HCl (Normodyne Iv Push) 5 mg 1X ONCE IVP Last administered on 02/24/20at 02:08; Start 02/24/20 at 02:30; Stop 02/24/20 at 02:31; Status DC Iohexol (Omnipaque 300 Mg/ml) 75 ml 1X ONCE IV Last administered on 02/24/20at 02:02; Start 02/24/20 at 02:00; Stop 02/24/20 at 02:03; Status DC Info (CONTRAST GIVEN -- Rx MONITORING) 1 each PRN DAILY PRN MC SEE COMMENTS; Start 02/24/20 at 02:15; Stop 02/26/20 at 02:14 Ketorolac Tromethamine (Toradol 30mg Vial) 30 mg PRN Q6HRS PRN IVP PAIN Last administered on 02/24/20at 14:14; Start 02/24/20 at 14:00; Stop 02/29/20 at 13:59 Prochlorperazine Edisylate (Compazine) 10 mg PRN Q6HRS PRN IV NAUSEA/VOMITING Last administered on 02/24/20at 14:14; Start 02/24/20 at 14:00 Amlodipine Besylate (Norvasc) 10 mg DAILY PRN PO HYPERTENSION-1ST CHOICE Last administered on 02/24/20at 21:49; Start 02/24/20 at 15:00 Metoprolol Tartrate (Lopressor) 50 mg PRN BID PRN PO HYPERTENSION; Start 02/24/20 at 21:00 Active Scripts Active Reported Bystolic (Nebivolol Hcl) 20 Mg Tablet 20 Mg PO DAILY PRN Norvasc (Amlodipine Besylate) 10 Mg Tablet 10 Mg PO DAILY PRN Vitals/I & O Vital Sign - Last 24 Hours 02/24/20 02/24/20 02/24/20 02/24/20 11:00 14:28 19:00 20:00 Temp 98.0 98.0 98.0 98.0 Pulse 66 66 Resp 18 B/P (MAP) 150/91 (110) 144/93 (110) 155/92 (113) Pulse Ox 94 94 O2 Delivery Room Air Room Air Room Air 02/24/20 02/24/20 02/25/20 02/25/20 21:49 23:26 03:30 07:00 Temp 97.6 97.9 98.7 97.6 97.9 98.7 Pulse 57 57 56 61 Resp 18 19 19 B/P (MAP) 155/92 169/98 (121) 145/78 (100) 160/85 (110) Pulse Ox 96 94 93 O2 Delivery Room Air Room Air Room Air Intake and Output 02/24/20 02/24/20 02/25/20 15:00 23:00 07:00 Intake Total 0 ml 100 ml 0 ml Output Total 200 ml Balance 0 ml -100 ml 0 ml Justicifation of Admission Dx: Justifications for Admission: Justification of Admission Dx: Comment: (left upper extremity weakness and possible right venous sinus thrombus) OSBALDO BENOIT MD Feb 25, 2020 09:24
[2020-02-25 11:00] VITALS: BP 144/90
--- NOTE | 2020-02-25 11:14 | PDOC ---
PROGRESS NOTES Chief Complaint Chief Complaint CT head: No intracranial hemorrhage. No midline shift. Basal cisterns patent. Ventricles and sulci are unremarkable. No acute osseous abnormality. Orbits and paranasal sinuses unremarkable. IMPRESSION: * No acute intracranial hemorrhage. * There are some scattered regions of low-density within the white matter. Nonspecific but some possible causes include small vessel ischemic disease or migraine. If further evaluation is desired an MRI could better assess whether any of these foci are acute. CTA head/neck: Neck Angio: The vertebral arteries are patent. The common carotid arteries and internal carotid arteries are patent. Multifocal plaque is seen throughout the neck arterial vasculature with some hard and some soft plaque seen. There is suspected soft plaque at the origin of the right common carotid artery. Brain Angio: Proximal anterior cerebral arteries are patent. Proximal posterior cerebral arteries are patent. Proximal middle cerebral arteries are patent. Basilar artery is patent. The right transverse sinus is largely absent. Filling defect is seen at the junction of right transverse and sigmoid sinus which could be from arachnoid granulation. Other Findings: Nasal septal deviation to the left. Degenerative changes of the spine. Cystic changes at the lung apices. There are some lucent foci in some of the cervical vertebral bodies. IMPRESSION: * Vertebral, internal and common carotid arteries are patent within the neck. Multifocal plaque is seen. * Proximal middle, anterior and posterior cerebral arteries are patent. If there is high concern for stroke MRI could better assess for a more peripheral region of ischemia that would not be well seen on CT. * There are some lucent foci throughout the osseous structures. Could be from patchy osteopenia of the lucent lesions are within the differential as well and would correlate with history or risk factors for neoplasm. 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 Could be secondary to hypoplasia but may be helpful to obtain a follow-up MRI including venogram i mages to ensure there is not an alternative cause such as transverse sinus thrombosis. Report called to the ER at 3:20 AM CXR: Hyperexpanded lungs without focal airspace consolidation. Calcific atherosclerosis without enlargement of cardiac silhouette. IMPRESSION: * Hyperexpanded lungs without focal airspace consolidation A/P: Left upper extremity weakness - possibly left radial neuropathy or radiculopathy, less likely CVA given resolution. MRI ordered. Neurology consulted. ASA allergy. No need for plavix Possible thrombosis in right transverse sinus versus just congenital hypoplasia - will get MRV outpatient HTN - cont home meds Headache - possibly 2/2 sinus thrombus vs stress, will give toradol prn Nausea - zofran and compazine ordered with improvement History of Present Illness History of Present Illness Ms Aguirre is a 49 yo F w/ PMHx HTN, smoker presenting to the ED with a chief complaint of left upper extremity numbness. Patient states that she went to bed around 10:30pm and woke up at 12:00 AM with numbness and pain in her left upper extremity. Patient states that she had chest pain yesterday but none today. Patient denies fever, chills, nausea, vomiting, diarrhea, dysuria, shortness of breath. She notes a severe headache and nausea. Symptoms started to improve. She was not given ASA due to allergy. CT head negative for infarct, but CT angiography of brain and neck showed possible right venous sinus occlusion She improved with 1 dose of toradol and compazine for headache and her neurologic symptoms completely resolved. She was seen by neurology and as our MRI machine is currently malfunctioning he will arrange for outpatient MRI, patient is amenable to this. Vitals Vitals Vital Signs Date Time Temp Pulse Resp B/P (MAP) Pulse Ox O2 Delivery O2 Flow Rate FiO2 02/25/20 08:00 Room Air 02/25/20 07:00 98.7 61 19 160/85 (110) 93 98.7 Physical Exam General: Alert, Oriented X3, Cooperative, No acute distress Abdomen: Normal bowel sounds, Soft, No tenderness, No hepatosplenomegaly, No masses Extremities: No clubbing, No cyanosis, No edema, Normal pulses, No tenderness/swelling Skin: No rashes, No breakdown, No significant lesion Assessment and Plan Assessmemt and Plan Problems Medical Problems: (1) CVA (cerebral vascular accident) Status: Acute Comment Review of Relevant I have reviewed the following items charles (where applicable) has been applied. Labs Laboratory Tests Test 02/24/20 00:38 02/24/20 00:40 02/24/20 02:03 Glucose (Fingerstick) 88 mg/dL (70-99) White Blood Count 10.1 x10^3/uL (4.0-11.0) Red Blood Count 4.89 x10^6/uL (3.50-5.40) Hemoglobin 15.4 g/dL (12.0-15.5) Hematocrit 44.1 % (36.0-47.0) Mean Corpuscular Volume 90 fL (79-100) Mean Corpuscular Hemoglobin 32 pg (25-35) Mean Corpuscular Hemoglobin Concent 35 g/dL (31-37) Red Cell Distribution Width 13.8 % (11.5-14.5) Platelet Count 243 x10^3/uL (140-400) Neutrophils (%) (Auto) 50 % (31-73) Lymphocytes (%) (Auto) 37 % (24-48) Monocytes (%) (Auto) 6 % (0-9) Eosinophils (%) (Auto) 5 % (0-3) Basophils (%) (Auto) 1 % (0-3) Neutrophils # (Auto) 5.1 x10^3/uL (1.8-7.7) Lymphocytes # (Auto) 3.7 x10^3/uL (1.0-4.8) Monocytes # (Auto) 0.6 x10^3/uL (0.0-1.1) Eosinophils # (Auto) 0.5 x10^3/uL (0.0-0.7) Basophils # (Auto) 0.1 x10^3/uL (0.0-0.2) Sodium Level 141 mmol/L (136-145) Potassium Level 3.7 mmol/L (3.5-5.1) Chloride Level 107 mmol/L (98-107) Carbon Dioxide Level 28 mmol/L (21-32) Anion Gap 6 (6-14) Blood Urea Nitrogen 20 mg/dL (7-20) Creatinine 0.9 mg/dL (0.6-1.0) Estimated GFR (Cockcroft-Gault) 67.1 BUN/Creatinine Ratio 22 (6-20) Glucose Level 98 mg/dL (70-99) Calcium Level 8.8 mg/dL (8.5-10.1) Total Bilirubin 0.2 mg/dL (0.2-1.0) Aspartate Amino Transf (AST/SGOT) 18 U/L (15-37) Alanine Aminotransferase (ALT/SGPT) 19 U/L (14-59) Alkaline Phosphatase 92 U/L (46-116) Troponin I Quantitative < 0.017 ng/mL (0.000-0.055) Total Protein 6.9 g/dL (6.4-8.2) Albumin 3.5 g/dL (3.4-5.0) Albumin/Globulin Ratio 1.0 (1.0-1.7) Urine Collection Type Unknown Urine Color Yellow Urine Clarity Clear Urine pH 7.0 (<5.0-8.0) Urine Specific [place] 1.010 (1.000-1.030) Urine Protein Negative mg/dL (NEG-TRACE) Urine Glucose (UA) Negative mg/dL (NEG) Urine Ketones (Stick) Negative mg/dL (NEG) Urine Blood Negative (NEG) Urine Nitrite Negative (NEG) Urine Bilirubin Negative (NEG) Urine Urobilinogen Dipstick 0.2 mg/dL (0.2 mg/dL) Urine Leukocyte Esterase Negative (NEG) Urine RBC 0 /HPF (0-2) Urine WBC Occ /HPF (0-4) Urine Squamous Epithelial Cells Few /LPF Urine Bacteria 0 /HPF (0-FEW) Medications Current Medications Labetalol HCl (Normodyne Iv Push) 5 mg 1X ONCE IVP Last administered on 02/24/20at 02:08; Start 02/24/20 at 02:30; Stop 02/24/20 at 02:31; Status DC Iohexol (Omnipaque 300 Mg/ml) 75 ml 1X ONCE IV Last administered on 02/24/20at 02:02; Start 02/24/20 at 02:00; Stop 02/24/20 at 02:03; Status DC Info (CONTRAST GIVEN -- Rx MONITORING) 1 each PRN DAILY PRN MC SEE COMMENTS; Start 02/24/20 at 02:15; Stop 02/26/20 at 02:14 Ketorolac Tromethamine (Toradol 30mg Vial) 30 mg PRN Q6HRS PRN IVP PAIN Last administered on 02/24/20at 14:14; Start 02/24/20 at 14:00; Stop 02/29/20 at 13:59 Prochlorperazine Edisylate (Compazine) 10 mg PRN Q6HRS PRN IV NAUSEA/VOMITING Last administered on 02/24/20at 14:14; Start 02/24/20 at 14:00 Amlodipine Besylate (Norvasc) 10 mg DAILY PRN PO HYPERTENSION-1ST CHOICE Last administered on 02/24/20at 21:49; Start 02/24/20 at 15:00 Metoprolol Tartrate (Lopressor) 50 mg PRN BID PRN PO HYPERTENSION; Start 02/24/20 at 21:00 Active Scripts Active Reported Bystolic (Nebivolol Hcl) 20 Mg Tablet 20 Mg PO DAILY PRN Norvasc (Amlodipine Besylate) 10 Mg Tablet 10 Mg PO DAILY PRN Vitals/I & O Vital Sign - Last 24 Hours 02/24/20 02/24/20 02/24/20 02/24/20 14:28 19:00 20:00 21:49 Temp 98.0 98.0 Pulse 66 57 B/P (MAP) 144/93 (110) 155/92 (113) 155/92 Pulse Ox 94 O2 Delivery Room Air Room Air 02/24/20 02/25/20 02/25/20 02/25/20 23:26 03:30 07:00 08:00 Temp 97.6 97.9 98.7 97.6 97.9 98.7 Pulse 57 56 61 Resp 18 19 19 B/P (MAP) 169/98 (121) 145/78 (100) 160/85 (110) Pulse Ox 96 94 93 O2 Delivery Room Air Room Air Room Air Room Air Intake and Output 02/24/20 02/24/20 02/25/20 15:00 23:00 07:00 Intake Total 0 ml 100 ml 0 ml Output Total 200 ml Balance 0 ml -100 ml 0 ml ALINE EDMONDSON MD Feb 25, 2020 11:14
--- NOTE | 2020-02-25 11:45 | NUR ---
Discharge Note: [facility] [address] [place] [address] Discharge instructions and discharge home medications reviewed with Patient and a copy given. All questions have been answered and understanding verbalized. The following instructions and handouts were given: stroke info, smoking cessation info, hypertension info, discharge instructions. Discontinued lines and drains: Peripheral IV intact. Patient discharged to Home or Self Care with Spouse via Ambulated at 1145.
== END 2020-02-25 11:40 | disposition home or self-care (01) | DRG 74 ==
LOC: ER 00:23 → 2 NORTH 04:48
PROVIDERS: ADMIT Family Medicine; ATTEND Family Medicine
DX: M54.12 Radiculopathy, cervical region (principal); I67.6 Nonpyogenic thrombosis of intracranial venous system; J34.2 Deviated nasal septum; Z82.49 Family history of ischemic heart disease and other diseases of the circulatory system; I10 Essential (primary) hypertension; F17.210 Nicotine dependence, cigarettes, uncomplicated; Z90.710 Acquired absence of both cervix and uterus; Z88.8 Allergy status to other drugs, medicaments and biological substances; Z79.899 Other long term (current) drug therapy; Q27.8 Other specified congenital malformations of peripheral vascular system
CPT/HCPCS: 36415; 70450; 70496; 70498; 71045; 80053; 81001; 82962; 84484; 85025; 93005; 96374; J0780; J1885; J3490; Q9967; 99285-25; G0378

== ENCOUNTER 2020-03-06 19:34 | Emergency (ER) | payer OTHER ==
[~2020-03-06] VITALS: Ht 162.6 cm; Wt 69.0 kg
[~2020-03-06 19:34] MED LIST: AMLO10TA4 PO; BYSTOLIC20 MG PO
[2020-03-06 20:40] VITALS: BP 166/96
--- NOTE | 2020-03-06 21:01 | PHYS DOC ---
Past Medical History Past Medical History: Other ([facility]) Past Surgical History: Hysterectomy, Tubal ligation [facility] Smoking Status: Current Every Day Smoker Alcohol Use: None ([facility] General Adult EDM: Chief Complaint: OTHER COMPLAINTS HPI: HPI: Patient is a 49 year old female who presents with was discharged on and states that over the IV was in her left radial wrist which is tender when she thinks that the tube from the IV is still stuck in there. Denies numbness or tingling, skin color change, temperature change, numbness or tingling, swelling. Patient is still moving and able to rotate the wrist fully. Rates her discomfort at a 6 out of 10. ([facility]) Review of Systems: Review of Systems: Musculoskeletal: Denies back pain. Left wrist joint pain. [] ([facility]) Heart Score: Risk Factors: Risk Factors: DM, Current or recent (<one month) smoker, HTN, HLP, family history of CAD, obesity. Risk Scores: Score 0 - 3: 2.5% MACE over next 6 weeks - Discharge Home Score 4 - 6: 20.3% MACE over next 6 weeks - Admit for Clinical Observation Score 7 - 10: 72.7% MACE over next 6 weeks - Early Invasive Strategies ([facility]) Allergies: Allergies: Allergies Coded Allergies Type Severity Reaction Last Updated Verified aspirin Allergy Severe angioedema 02/24/20 Yes ([facility]) Physical Exam: PE: Constitutional: Well developed, well nourished, no acute distress, non-toxic appearance. [] HENT: Normocephalic, atraumatic, bilateral external ears normal, oropharynx moist, no oral exudates, nose normal. [] Eyes: PERRLA, EOMI, conjunctiva normal, no discharge. [] Neck: Normal range of motion, no tenderness, supple, no stridor. [] Cardiovascular:Heart rate regular rhythm, no murmur [] Lungs & Thorax: Bilateral breath sounds clear to auscultation [] Abdomen: Bowel sounds normal, soft, no tenderness, no masses, no pulsatile ma sses. [] Skin: Warm, dry, no erythema, no rash. [] Back: No tenderness, no CVA tenderness. [] Extremities: Left radial wrist tenderness, no cyanosis, no clubbing, ROM intact, no edema. [] Neurologic: Alert and oriented X 3, normal motor function, normal sensory function, no focal deficits noted. [] Psychologic: Affect normal, judgement normal, mood normal. [] (SASKIA CALLE APRN) PE: Constitutional: Well developed, well nourished, no acute distress, non-toxic appearance HENT: Normocephalic, atraumatic Eyes: Conjunctiva normal, no discharge Cardiovascular: Left radial pulse +2, CR < 2 sec Lungs & Thorax: No respiratory distress Skin: Warm, dry, no erythema Extremities: left lateral forearm indurated area with tenderness, ROM intact, no edema Neurologic: Alert and oriented X 3, no focal deficits noted Psychologic: Affect normal, judgment normal (JUAREZ,DUSTY R DO) Current Patient Data: Vital Signs: Vital Signs Date Time Temp Pulse Resp B/P (MAP) Pulse Ox O2 Delivery O2 Flow Rate FiO2 03/06/20 20:40 98.2 65 12 166/96 (119) 95 Room Air 98.2 ([facility]) EKG: EKG: [] (SASKIA CALLE APRN) Radiology/Procedures: Radiology/Procedures: [] (SASKIA CALLE MAINFRAME ANALYST) Radiology/Procedures: PROCEDURE: VENOUS UPPER EXTREMITY LEFT EXAM: Left upper extremity venous Doppler. HISTORY: Left wrist pain and swelling after IV placement. Concern for retained IV cannula. COMPARISON: None. FINDINGS: Grayscale and Doppler analysis of the left upper extremity superficial venous system was performed with graded compression and augmentation at the site of prior IV placement. The deep venous system was not assessed. No foreign body is identified. The distal cephalic vein at the site of IV placement compresses partially consistent with nonocclusive superficial venous thrombosis. There is a small underlying extensor tendon sheath effusion. IMPRESSION: 1. No evidence of retained foreign body. 2. Nonocclusive superficial venous thrombosis of the distal cephalic vein. 3. An adjacent extensor tendon sheath effusion may be reactive. Correlate to exclude infection. Electronically signed by: Jean-Claude Bar MD (03/06/2020 11:38 PM) [facility] (DUSTY JUAREZ DO) Course & Med Decision Making: Course & Med Decision Making Pertinent Labs and Imaging studies reviewed. (See chart for details) Alert and oriented. Amatory steady gait. No extremity swelling. Tenderness over the left radial wrist area with the IV was located. There is no redness or swelling there is only tenderness. I only feel the vein moving with my finger but I do not feel any foreign object in there. Cap refill less than 3 seconds. Radial pulse is strong present. No unilateral swelling. No signs or symptoms to make me suggest a clot. Denies soa or chest pain. No calf tenderness. [] We have been waiting on US since I placed the order at 2051. Radiology can not find the US tech and they are not answering pages or call. Patient states she just wants to leave. I feel that the tenderness in the area is likely some phlebitis due to the IV. Patient states she just wants to go home. Patient is leaving AMA as I can not gaurentee that there is no clot or foreign body. Patient educated that she runs the risk , heart attack, stroke, loss of limb, disability or PE. For patient could leave radiology called and stated that the elevator technician is on her way in and should be here shortly. Patient has decided to stay and wait. (SASKIA CALLE APRN) Course & Med Decision Making 2100- Sign out received from Saskia GILES for patient with concern for possible thrombophlebitis. US pending. Patient seen and evaluated by myself. US confirmed signs of thrombophlebitis. Empiric steroid and antibiotic provided. Patient stable for discharge with outpatient follow-up with PCP. Discussed findings and plan with patient, who acknowledges understanding and agreement. (DUSTY JUAREZ DO) Dragon Disclaimer: Emiliano Disclaimer: This electronic medical record was generated, in whole or in part, using a voice recognition dictation system. (SASKIA CALLE APRN) Departure Departure Impression: Primary Impression: Phlebitis Disposition: HOME, SELF-CARE Condition: STABLE Referrals: UNKNOWN PCP NAME (PCP) Patient Instructions: Phlebitis Additional Instructions: Follow-up with primary care provider. Take Tylenol for pain. Use a warm compress. If you begin having swelling in the extremity and increased pain or red streaking return to the emergency room. Scripts Prednisone (PREDNISONE) 20 Mg Tablet 2 TAB PO DAILY, #8 TAB Start this prescription tomorrow, 03/07/20 Prov: DUSTY JUAREZ DO 03/06/20 Cephalexin (KEFLEX) 500 Mg Capsule 500 MG PO QID for 7 Days, #28 CAP Prov: DUSTY JUAREZ DO 03/06/20 Justicifation of Admission Dx: Justifications for Admission: Justification of Admission Dx: Comment: (SASKIA CALLE APRN) Justification of Admission Dx: N/A (DUSTY JUAREZ DO) Attending Signature Attending Signature I have personally interviewed and examined the patient. All charts, labs, and imaging studies were reviewed. I agree with the PA/LABORATORY ENGINEER's findings, exam, and plan. (DUSTY JUAREZ DO) SASKIA CALLE APRN Mar 06, 2020 21:01 DUSTY JUAREZ DO Mar 06, 2020 23:45
--- NOTE | 2020-03-06 23:41 | RAD ---
EXAM: Left upper extremity venous Doppler. HISTORY: Left wrist pain and swelling after IV placement. Concern for retained IV cannula. COMPARISON: None. FINDINGS: Grayscale and Doppler analysis of the left upper extremity superficial venous system was performed with graded compression and augmentation at the site of prior IV placement. The deep venous system was not assessed. No foreign body is identified. The distal cephalic vein at the site of IV placement compresses partially consistent with nonocclusive superficial venous thrombosis. There is a small underlying extensor tendon sheath effusion. IMPRESSION: 1. No evidence of retained foreign body. 2. Nonocclusive superficial venous thrombosis of the distal cephalic vein. 3. An adjacent extensor tendon sheath effusion may be reactive. Correlate to exclude infection. Electronically signed by: Jean-Claude Bar MD (03/06/2020 11:38 PM) [facility]
[2020-03-06] MEDS ORDERED: PRED20TA PO (23:45)
[2020-03-06] MEDS ORDERED: CEPH-264 PO (23:45)
[2020-03-07] MEDS ORDERED: CEPHALEXIN 250 MG CAPSULE. PO ONE
[2020-03-07] MEDS ORDERED: DEXAMETHASONE 4 MG TABLET PO ONE
== END 2020-03-07 | disposition home or self-care (01) ==
LOC: ER 19:34
DX: I80.9 Phlebitis and thrombophlebitis of unspecified site (principal); R60.0 Localized edema; F17.200 Nicotine dependence, unspecified, uncomplicated; Z90.710 Acquired absence of both cervix and uterus; Z98.51 Tubal ligation status; Z88.6 Allergy status to analgesic agent
CPT/HCPCS: 93971; 99284

== ENCOUNTER → 2020-03-11 | Outpatient (CLI) | payer OTHER ==
[2020-03-06 20:40] VITALS: BP 166/96
[~2020-03-11] MED LIST changes: +CEPH-264 PO; +PRED20TA PO
--- NOTE | 2020-03-11 12:51 | RAD ---
MRI Brain without contrast History:TIA Technique: Multiplanar, multisequential noncontrast MR imaging was performed of the brain. Comparison: Head CT February 24, 2020, no previous MRI available Findings: There is no evidence of recent infarct or cytotoxic edema. The ventricles, sulci, and cisterns are within normal limits in size and configuration. There is no significant midline shift, intraaxial mass effect, or focal abnormal extra-axial fluid collection. There is multifocal [id number]-[id number] T2 and FLAIR hyperintense signal normality of the central parenchyma bilaterally. There is also mild signal abnormality of the forrest. There is small focus of hemosiderin deposition of the left basal ganglia which may be sequela of old microhemorrhage. There is preservation of the major intracranial flow-voids at the skull base. The cerebellar tonsils are normal in location. There is no significant abnormality of the pineal gland or this position. There is diffuse retention cyst pterygoid aspects right sphenoid sinus about 1 cm. There is mild bilateral ethmoid air cell mucosal thickening greater anteriorly. There is mild patchy fluid and thickening of the mastoid air cells greater on the right.There is preserved marrow signal of the clivus. Impression: 1. There is no evidence of recent infarct or intracranial mass effect. There is nonspecific multifocal [id number] T2 and FLAIR hyperintense signal abnormality of the supratentorial parenchyma bilaterally. In a patient this age, sequela of an inflammatory demyelinating disease should be considered. Sequela of chronic microvascular ischemic disease would be less common unless risk factors such as hypertension or diabetes or known hereditary disposition. Sequela of atypical infection such as Lyme disease would be much less common. There is no significant variable restricted diffusion as more commonly associated with vasculitis. No contrast was given to evaluate for enhancement. 2. There is a small focus of old microhemorrhage of the left basal ganglia. MR venogram of the head without contrast History:TIA Technique: Noncontrast MR venography was performed of the head. Comparison: None Findings: There is some motion degradation. There is a larger caliber vein coursing inferior to the torcula in the posterior central aspect of the posterior fossa extending to the right. No normal right transverse or sigmoid sinuses are visualized. There is visualization of the left transverse and sigmoid sinuses and jugular bulb. There is visualization segments of the superior sagittal sinus. No discrete occlusive filling defect is identified of the visualized major venous sinuses. Impression: 1. Normal right transverse and sigmoid sinuses are not seen, larger vein in the posterior central aspect of the posterior fossa extending to the right presumably on developmental basis. No convincing occlusive filling defect is identified of the visualized major venous sinuses allowing for limitations of noncontrast exam. Electronically signed by: Geraldo Clement MD (03/11/2020 12:48 PM) [id number]
== END | disposition home or self-care (01) ==
LOC: MRI 09:54
PROVIDERS: ATTEND Psychiatry & Neurology Neurology with Special Qualifications in Child Neurology
DX: G08 Intracranial and intraspinal phlebitis and thrombophlebitis (principal); G45.9 Transient cerebral ischemic attack, unspecified
CPT/HCPCS: 70544; 70551